=== PATIENT | female | born 1985 | race African-American/Black ===

== ENCOUNTER 2016-08-27 21:10 | Emergency (ER) | payer OTHER ==
[2016-08-27 21:12] VITALS: BP 168/92; PULSE 101; RESP 16; TEMP 98.6; O2SAT 97
[2016-08-27] MEDS ORDERED: DICL75TA PO (21:41)
--- NOTE | 2016-08-27 21:44 | PD ---
HPI Chief Complaint: Injury Time Seen by Provider: 21:41 Travel History International Travel<30 days: No Contact w/Intl Traveler<30days: No Traveled to known affect area: No History of Present Illness HPI 30-year-old black female presents to emergency department with complaints of left knee pain. She states that she was running while playing kickball and had sudden pain and popping sensation in her left knee. Since then she has not been able to bend her knee freely. She denies any direct trauma. No numbness, tingling or weakness. Pain is moderate. Worse with weight bearing and bending of the knee. No alleviating factors. PFSH Past Medical History Medical History: Denies Significant Hx Diminished Hearing: No Tetanus Vaccination: < 5 Years ?: Not : 2 Para: 2 Tubal Ligation: Yes Past Surgical History Narrative Surgical Tubal ligation Gynecologic Surgery: Yes (TUBAL LIGATION) Tonsillectomy: Yes Social History Alcohol Use: No Tobacco Use: No Substance Use: No Allergies-Medications (Allergen,Severity, Reaction): Coded Allergies: Citric Acid (Verified Allergy, Severe, RASH AND SWELLING, 08/27/16) Reported Meds & Prescriptions Reported Meds & Active Scripts Active No Active Prescriptions or Reported Medications Review of Systems Except as stated in HPI: all other systems reviewed are Neg Musculoskeletal: Positive: Arthralgias, Limited ROM, Edema, Pain Physical Exam Narrative GENERAL: This is a well-nourished, well-developed patient, in no apparent distress. SKIN: No rashes, ecchymoses or lesions. Warm and dry. HEAD: Atraumatic. Normocephalic. EYES: PERRL, EOMI, no discharge or injection. No scleral icterus. EARS: Clear NOSE: Nasal turbinates appear normal. THROAT: Mucosa pink and moist. Airway patent. NECK: Trachea midline. supple, moves head freely. LUNGS: Clear to auscultation. CV: Regular in rhythm. ABDOMEN: Soft nontender. EXT: No clubbing cyanosis or edema. Examination of the left lower shoulder reveals no obvious joint effusion. She complains of tenderness over the patella and infrapatellar region. She has full extension but has limited flexion. No pain on the medial lateral compartments of the knee. No instability. No pain in the hip, ankle or foot. She has intact sensation with good distal pulses Data Data Last Documented VS Vital Signs Date Time Temp Pulse Resp B/P Pulse Ox O2 Delivery O2 Flow Rate FiO2 08/27/16 21:12 98.6 101 16 168/92 97 Room Air Orders Ice/Cold Pack (08/27/16 21:40) Splint Or Brace Apply/Monitor (08/27/16 21:40) Crutches (08/27/16 21:40) Ibuprofen (Motrin) (08/27/16 21:45) MDM Medical Decision Making Medical Screen Exam Complete: Yes Emergency Medical Condition: Yes Medical Record Reviewed: Yes Differential Diagnosis MDM: High Differential diagnoses: Fracture, sprain, strain, dislocation, contusion, neurovascular injury Narrative Course This is left knee sprain. Patient's given Kevin wrap, Motrin 800, crutches. Diagnosis Primary Impression: Left knee sprain Qualified Code: S83.92XA - Sprain of left knee, unspecified ligament, initial encounter Patient Instructions: General Instructions Departure Forms: Tests/Procedures, Work Release Special Instructions: No work 3 days. Additional Instructions: Rest. Elevation. Ice packs for the next 3 days. Kevin wrap and crutches. No weight-bearing and then progress to weight-bearing as tolerated. Medications as directed Follow-up with an orthopedist or your doctor in one week. Return to the ER if any problems Med/Other Pt SpecificInfo: Prescription(s) given Scripts Diclofenac Sodium DR 75 Mg Tabdr75 Mg PO BID #20 TAB Prov:Zeynep Lazo DO 08/27/16 Disposition: 01 DISCHARGE HOME Condition: Stable Shashank Hernandez August 27, 2016 21:44
[2016-08-27] MEDS: IBUPROFEN 800 MG TAB PO ONE ×2 (22:12→22:17)
== END 2016-08-27 22:44 | disposition home or self-care (01) ==
LOC: NEPK 21:10
DX: S83.92XA Sprain of unspecified site of left knee, initial encounter (principal); X58.XXXA Exposure to other specified factors, initial encounter; Y93.02 Activity, running
CPT/HCPCS: 99283; E0113

== ENCOUNTER 2016-11-19 00:42 | Emergency (ER) | payer OTHER ==
[~2016-11-19] VITALS: Ht 175.3 cm; Wt 135.0 kg
[~2016-11-19 00:42] MED LIST: DICL75TA PO
[2016-11-19 00:44] VITALS: BP 140/89; PULSE 93; RESP 18; TEMP 98.7; O2SAT 99
[2016-11-19 01:31] LABS: BLOOD, URINE SMALL (NEG); COMMENT (UR) CULT NOT INDICATED; CULTURE IF INDICATED CULT NOT INDICATED; GLUCOSE,URINE NEG (NEG); KETONE, URINE NEG (NEG); MUCUS URINE MANY /lpf (OCC); NITRITE,URINE NEG (NEG); PH, URINE 5.5 (5.0-8.5); SQUAMOUS EPITHELIAL CELL URINE 19 /hpf (0-5); URINE COLOR YELLOW (YELLW/STRAW)
[2016-11-19] MEDS ORDERED: KETOROLAC TROMETHAMINE 60 MG/2 ML (IM) VIAL IM ONE (02:00)
[2016-11-19] MEDS ORDERED: ORPHENADRINE INJ 60 MG/2 ML AMP IM ONE (02:00)
[2016-11-19] MEDS ORDERED: BACL10TA PO (02:03)
[2016-11-19] MEDS ORDERED: IBUP800T23 PO (02:03)
--- NOTE | 2016-11-19 02:07 | PD ---
HPI Chief Complaint: Back/ Neck Pain or Injury Time Seen by Provider: 01:46 Travel History International Travel<30 days: No Contact w/Intl Traveler<30days: No Traveled to known affect area: No History of Present Illness HPI 31-year-old female here with lower back pain which started this morning. The pain is an aching pain that is worse with movement. She does not recall any injury. She has not tried using any [id number] medication for symptom relief. Denies abdominal pain, flank pain, dysuria, hematuria, vaginal bleeding or discharge, radicular symptoms, bowel or bladder incontinence, saddle anesthesia. No other complaints. PFSH Past Medical History Medical History: Denies Significant Hx Diminished Hearing: No Immunizations Current: Yes ?: Not LMP: 10/27/16 : 2 Para: 2 Tubal Ligation: Yes Past Surgical History Gynecologic Surgery: Yes (TUBAL LIGATION) Tonsillectomy: Yes Social History Alcohol Use: No Tobacco Use: No Substance Use: No Allergies-Medications (Allergen,Severity, Reaction): Coded Allergies: citric acid (Unverified Allergy, Severe, RASH AND SWELLING, 11/11/16) Reported Meds & Prescriptions Reported Meds & Active Scripts Active Ibuprofen 800 Mg Tab 800 Mg PO Q6HR PRN 7 Days Baclofen 10 Mg Tab 10 Mg PO Q8HR PRN [address] (Diclofenac Sodium) 75 Mg Tabdr 75 Mg PO BID Review of Systems Except as stated in HPI: all other systems reviewed are Neg Physical Exam Narrative GENERAL: Well-developed well-nourished female in no acute distress SKIN: Warm and dry. There is no rash, no bruising, no soft tissue swelling HEAD: Atraumatic. Normocephalic. EYES: Pupils equal and round. No scleral icterus. No injection or drainage. ENT: No nasal bleeding or discharge. Mucous membranes pink and moist. NECK: Trachea midline. No JVD. CARDIOVASCULAR: Regular rate and rhythm. No murmur appreciated. RESPIRATORY: No accessory muscle use. Clear to auscultation. Breath sounds equal bilaterally. GASTROINTESTINAL: Abdomen soft, non-tender, nondistended. Hepatic and splenic margins not palpable. MUSCULOSKELETAL: No obvious deformities. There is tenderness to palpation to the lumbar paravertebral musculature. There is no CVA tenderness. There is no vertebral midline tenderness. Normal gait. NEUROLOGICAL: Awake and alert. No obvious cranial nerve deficits. Motor grossly within normal limits. Normal speech. Data Data Last Documented VS Vital Signs Date Time Temp Pulse Resp B/P (MAP) Pulse Ox O2 Delivery O2 Flow Rate FiO2 11/19/16 00:44 98.7 93 18 140/89 (106) 99 Orders Orders Ed Urine Pregnancytest Poc (11/19/16 01:01) Urinalysis - C+S If Indicated (11/19/16 01:01) Ketorolac Inj (Toradol Inj) (11/19/16 02:00) Orphenadrine Inj (Norflex Inj) (11/19/16 02:00) Labs Laboratory Tests Test 11/19/16 01:12 Urine Color YELLOW Urine Turbidity HAZY Urine pH 5.5 Urine Specific [place] 1.036 Urine Protein TRACE mg/dL Urine Glucose (UA) NEG mg/dL Urine Ketones NEG mg/dL Urine Occult Blood SMALL Urine Nitrite NEG Urine Bilirubin NEG Urine Urobilinogen LESS THAN 2.0 MG/DL Urine Leukocyte Esterase MOD Urine RBC 3 /hpf Urine WBC 6 /hpf Urine Squamous Epithelial Cells 19 /hpf Urine Mucus MANY /lpf Microscopic Urinalysis Comment CULT NOT INDICATED MDM Medical Decision Making Medical Screen Exam Complete: Yes Emergency Medical Condition: Yes Medical Record Reviewed: Yes Differential Diagnosis Lumbar strain, spasm, renal stone, referred intra-abdominal pain, lumbar fracture Narrative Course Physical examination is consistent with lumbar strain. There is no evidence of renal stone on examination or history. There is no evidence of UTI on history or examination. The abdomen is soft and nontender. The patient will be discharged with a short course of NSAIDs and muscle relaxants. Diagnosis Primary Impression: Lumbar strain Qualified Codes: S39.012A - Strain of muscle, fascia and tendon of lower back , initial encounter Additional Instructions: Medication as needed. Avoid strenuous activity. Follow-up with primary care physician in one week. Return for any emergent medical conditions. Med/Other Pt SpecificInfo: Prescription(s) given Scripts Ibuprofen (Ibuprofen) 800 Mg Tab 800 MG PO Q6HR Y for PAIN for 7 Days, TAB 0 Refills Prov: Sarah Nye DO 11/19/16 Baclofen (Baclofen) 10 Mg Tab 10 MG PO Q8HR Y for MUSCLE SPASM for 7 Days, TAB 0 Refills Prov: Sarah Nye DO 11/19/16 Disposition: 01 DISCHARGE HOME Condition: Stable Latrell Monroe Nov 19, 2016 02:07
== END 2016-11-19 02:43 | disposition home or self-care (01) ==
LOC: NEPK 00:42
DX: S39.012A Strain of muscle, fascia and tendon of lower back, initial encounter (principal); X58.XXXA Exposure to other specified factors, initial encounter
CPT/HCPCS: 81001; 84703; 96372; 99284; J1885; J2360

== ENCOUNTER 2017-04-23 23:55 | Emergency (ER) | payer SELFPAY ==
[~2017-04-23] VITALS: Ht 162.6 cm; Wt 98.0 kg
[~2017-04-23 23:55] MED LIST changes: +BACL10TA PO; +IBUP1TAB7 PO
[2017-04-23 23:59] VITALS: BP 119/62; PULSE 97; RESP 12; O2SAT 100
[2017-04-24] MEDS ORDERED: IBUPROFEN 600 MG TAB PO ONE (01:30)
[2017-04-24 01:47] LABS: AUTOMATED NEUTROPHIL # 5.3 TH/MM3 (1.8-7.7); BASOPHIL # 0.1 TH/MM3 (0-0.2); BASOPHIL % 0.7 % (0.0-2.0); EOSINOPHIL # 0.1 TH/MM3 (0-0.4); EOSINOPHIL % 1.2 % (0.0-4.0); HEMATOCRIT 38.7 % (35.0-46.0); HEMOGLOBIN 13.2 GM/DL (11.6-15.3); LYMPH % 34.3 % (9.0-44.0); LYMPHOCYTE # 3.2 TH/MM3 (1.0-4.8); MEAN CELL VOLUME 87.8 FL (80.0-100.0); MEAN CORPUSCULAR HEMOGLOBIN 29.9 PG (27.0-34.0); MONO % 6.5 % (0.0-8.0); MONOCYTE # 0.6 TH/MM3 (0-0.9); NEUT % 57.3 % (16.0-70.0); PLATELET COUNT 351 TH/MM3 (150-450); RED BLOOD COUNT 4.41 MIL/MM3 (4.00-5.30); WHITE BLOOD COUNT 9.2 TH/MM3 (4.0-11.0)
--- NOTE | 2017-04-24 03:51 | PD ---
HPI . Numbness/tingling Chief Complaint: Numbness/Tingling Time Seen by Provider: 00:41 Travel History International Travel<30 days: No Contact w/Intl Traveler<30days: No Traveled to known affect area: No History of Present Illness HPI 31-year-old female status post operation on left elbow recently, presents with having pain tenderness swelling of her left hand. Patient presents with her hand in a dependent position. Patient denies any fever chills sweats or swelling or pain proximal to the elbow. No recent trauma PFSH Past Medical History Narrative Medical Past medical history reviewed. Past surgical history reviewed Diminished Hearing: No Immunizations Current: Yes Tetanus Vaccination: Unknown Influenza Vaccination: No ?: Unknown : 2 Para: 2 Tubal Ligation: Yes Past Surgical History Gynecologic Surgery: Yes (TUBAL LIGATION) Tonsillectomy: Yes Social History Alcohol Use: No Tobacco Use: No Substance Use: No Allergies-Medications (Allergen,Severity, Reaction): Coded Allergies: citric acid (Unverified Allergy, Severe, RASH AND SWELLING, 04/24/17) Reported Meds & Prescriptions Reported Meds & Active Scripts Active Ibuprofen 800 Mg Tab 800 Mg PO Q6HR PRN 7 Days Baclofen 10 Mg Tab 10 Mg PO Q8HR PRN [address] (Diclofenac Sodium) 75 Mg Tabdr 75 Mg PO BID Narrative Medication Allergies and medications reviewed Review of Systems Except as stated in HPI: all other systems reviewed are Neg General / Constitutional: No: Fever Eyes: No: Visual changes HENT: No: Headaches Cardiovascular: No: Chest Pain or Discomfort Respiratory: No: Shortness of Breath Gastrointestinal: No: Abdominal Pain Genitourinary: No: Dysuria Musculoskeletal: Positive: Edema, Pain Skin: No Rash Neurologic: Positive: Paresthesia, No: Weakness Psychiatric: No: Depression Endocrine: No: Polydipsia Hematologic/Lymphatic: No: Easy Bruising Physical Exam Narrative GENERAL: Awake and alert oriented 3 no acute distress SKIN: Warm and dry. HEAD: Atraumatic. Normocephalic. EYES: Pupils equal and round. No scleral icterus. No injection or drainage. ENT: No nasal bleeding or discharge. Mucous membranes pink and moist. NECK: Trachea midline. No JVD. CARDIOVASCULAR: Regular rate and rhythm. RESPIRATORY: No accessory muscle use. Clear to auscultation. Breath sounds equal bilaterally. GASTROINTESTINAL: Abdomen soft, non-tender, nondistended. Hepatic and splenic margins not palpable. MUSCULOSKELETAL: Left upper extremity with left lateral elbow well-healing surgical scar, gaurav edema of the patient's hand and wrist distally. Patient has paresthesias and numbness of same NEUROLOGICAL: Awake and alert. No obvious cranial nerve deficits. Motor grossly within normal limits. Five out of 5 muscle strength in the arms and legs. Normal speech. PSYCHIATRIC: Appropriate mood and affect; insight and judgment normal. Data Data Last Documented VS Vital Signs Date Time Temp Pulse Resp B/P (MAP) Pulse Ox O2 Delivery O2 Flow Rate FiO2 04/23/17 23:59 97 12 119/62 (81) 100 Room Air Orders Orders Complete Blood Count With Diff (04/24/17 01:00) Ibuprofen (Motrin) (04/24/17 01:30) Labs Laboratory Tests Test 04/24/17 01:25 White Blood Count 9.2 TH/MM3 Red Blood Count 4.41 MIL/MM3 Hemoglobin 13.2 GM/DL Hematocrit 38.7 % Mean Corpuscular Volume 87.8 FL Mean Corpuscular Hemoglobin 29.9 PG Mean Corpuscular Hemoglobin Concent 34.0 % Red Cell Distribution Width 14.0 % Platelet Count 351 TH/MM3 Mean Platelet Volume 8.0 FL Neutrophils (%) (Auto) 57.3 % Lymphocytes (%) (Auto) 34.3 % Monocytes (%) (Auto) 6.5 % Eosinophils (%) (Auto) 1.2 % Basophils (%) (Auto) 0.7 % Neutrophils # (Auto) 5.3 TH/MM3 Lymphocytes # (Auto) 3.2 TH/MM3 Monocytes # (Auto) 0.6 TH/MM3 Eosinophils # (Auto) 0.1 TH/MM3 Basophils # (Auto) 0.1 TH/MM3 CBC Comment DIFF FINAL Differential Comment MDM Medical Decision Making Medical Screen Exam Complete: Yes Emergency Medical Condition: Yes Medical Record Reviewed: Yes Differential Diagnosis Compartment syndrome, dependent edema, cellulitis Narrative Course Patient's extremity elevated for 30 minutes, with significant improvement in edema as well as symptomatology of paresthesias and numbness. Patient's pulses and capillary refill remained positive throughout. Patient's laboratory examination reviewed, normal white blood cell count. Discharge Diagnosis Primary Impression: Edema Qualified Codes: R60.0 - Localized edema Patient Instructions: Edema (ED), General Instructions Additional Instructions: Elevate left upper extremity above heart as shown. Follow-up with your surgeon. Return for worsening. Motrin for pain Disposition: 01 DISCHARGE HOME Condition: Stable Frank Hoskins MD Apr 24, 2017 03:51
== END 2017-04-24 03:58 | disposition home or self-care (01) ==
LOC: NEPE 23:55
DX: R60.0 Localized edema (principal)
CPT/HCPCS: 85025; 99283

== ENCOUNTER 2017-08-06 23:43 | Emergency (ER) | payer OTHER ==
[~2017-08-06] VITALS: Ht 177.8 cm; Wt 132.0 kg
[2017-08-06 23:58] VITALS: BP 132/71; PULSE 82; RESP 20; TEMP 98.4; O2SAT 100
[2017-08-07 03:14] LABS: AUTOMATED NEUTROPHIL # 4.4 TH/MM3 (1.8-7.7); BASOPHIL % 0.4 % (0.0-2.0); EOSINOPHIL # 0.1 TH/MM3 (0-0.4); EOSINOPHIL % 1.5 % (0.0-4.0); LYMPH % 35.1 % (9.0-44.0); LYMPHOCYTE # 2.8 TH/MM3 (1.0-4.8); MEAN CELL VOLUME 87.1 FL (80.0-100.0); MEAN CORPUSCULAR HEMOGLOBIN 28.9 PG (27.0-34.0); MEAN CORPUSCULAR HGB CONC 33.2 % (32.0-36.0); MEAN PLATELET VOLUME 8.4 FL (7.0-11.0); MONO % 8.3 % (0.0-8.0); MONOCYTE # 0.7 TH/MM3 (0-0.9); NEUT % 54.7 % (16.0-70.0); PLATELET COUNT 286 TH/MM3 (150-450); RED BLOOD COUNT 4.48 MIL/MM3 (4.00-5.30); RED CELL DISTRIBUTION WIDTH 14.6 % (11.6-17.2)
--- NOTE | 2017-08-07 03:21 | PD ---
HPI Chief Complaint: Edema Time Seen by Provider: 02:30 Travel History International Travel<30 days: No Contact w/Intl Traveler<30days: No Traveled to known affect area: No History of Present Illness HPI 31-year-old female presents to the emergency department for 3 months of lower extremity swelling which is worsened over the past 2 days. Patient was just seen by her primary care provider 2 weeks ago is evaluating her for amenorrhea. Patient states that she has not had a period in 3 months status post tubal ligation and test is negative. Patient states she did tell her primary care provider about the lower extremity swelling and foot pedal pain but that the doctor was focused on her menstrual issues and forgot to address her foot swelling. Patient denies other concerns or complaints. Patient's had no fever no orthopnea no PND no dyspnea on exertion no chest pain no shortness of breath no wheezing no abdominal pain no recent long distance travel protracted bedrest or surgical procedure. Patient denies any calf pain or tenderness. Patient states pain is related to her feet which throb when she puts on her tennis shoes. Patient denies other concerns or complaints. Patient is a normal urine output. Patient denies history of kidney failure and denies history of diabetes. PFSH Past Medical History Narrative Medical Morbid obesity dysfunctional uterine bleeding tubal ligation tonsillectomy no tobacco use; nursing notes reviewed Medical History: Denies Significant Hx Diminished Hearing: No Immunizations Current: Yes ?: Not : 2 Para: 2 Tubal Ligation: Yes Past Surgical History Gynecologic Surgery: Yes (TUBAL LIGATION) Tonsillectomy: Yes Social History Alcohol Use: No Tobacco Use: No Substance Use: No Allergies-Medications (Allergen,Severity, Reaction): Coded Allergies: citric acid (Unverified Allergy, Severe, RASH AND SWELLING, 08/06/17) Reported Meds & Prescriptions Reported Meds & Active Scripts Active Ibuprofen 800 Mg Tab 800 Mg PO Q6HR PRN 7 Days Baclofen 10 Mg Tab 10 Mg PO Q8HR PRN [address] (Diclofenac Sodium) 75 Mg Tabdr 75 Mg PO BID Review of Systems Except as stated in HPI: all other systems reviewed are Neg General / Constitutional: No: Fever, Chills HENT: No: Congestion Cardiovascular: Positive: Edema, No: Chest Pain or Discomfort, Palpitations, Diaphoresis, Syncope, Dyspnea on exertion Respiratory: No: Cough, Shortness of Breath, Wheezing, Orthopnea, Pleuritic Pain Gastrointestinal: No: Nausea, Vomiting, Abdominal Pain Genitourinary: No: Dysuria Musculoskeletal: Positive: Edema, No: Myalgias, Arthralgias Skin: No Rash Neurologic: No: Weakness Psychiatric: No: Anxiety Hematologic/Lymphatic: No: Lymph Node Enlargement Physical Exam Narrative GENERAL: Well-developed well-nourished obese female no acute distress or respiratory distress; triage vital signs in normal range SKIN: Warm and dry. HEAD: Normocephalic. EYES: No scleral icterus. No injection or drainage. NECK: Supple, trachea midline. No JVD or lymphadenopathy. CARDIOVASCULAR: Regular rate and rhythm without murmurs, gallops, or rubs. RESPIRATORY: Breath sounds equal bilaterally. No accessory muscle use. GASTROINTESTINAL: Abdomen soft, non-tender, nondistended. MUSCULOSKELETAL: No cyanosis, bilateral lower extremity and pedal edema; bilateral dorsalis pedis pulses 2+ to palpation and equal. Capillary refill is brisk and less than 2 seconds per digit no redness no increased warmth, pink warm extremities no pallor or coolness. BACK: Nontender without obvious deformity. No CVA tenderness. Data Data Last Documented VS Vital Signs Date Time Temp Pulse Resp B/P (MAP) Pulse Ox O2 Delivery O2 Flow Rate FiO2 08/06/17 23:58 98.4 82 20 132/71 (91) 100 Orders Orders Complete Blood Count With Diff (08/07/17 02:30) Basic Metabolic Panel (Bmp) (08/07/17 02:30) Magnesium (Mg) (08/07/17 02:30) Ed Urine Pregnancytest Poc (08/07/17 02:30) B-Type Natriuretic Peptide (08/07/17 02:30) Chest, Single Ap (08/07/17 ) Labs Laboratory Tests Test 08/07/17 02:57 White Blood Count 8.0 TH/MM3 Red Blood Count 4.48 MIL/MM3 Hemoglobin 13.0 GM/DL Hematocrit 39.0 % Mean Corpuscular Volume 87.1 FL Mean Corpuscular Hemoglobin 28.9 PG Mean Corpuscular Hemoglobin Concent 33.2 % Red Cell Distribution Width 14.6 % Platelet Count 286 TH/MM3 Mean Platelet Volume 8.4 FL Neutrophils (%) (Auto) 54.7 % Lymphocytes (%) (Auto) 35.1 % Monocytes (%) (Auto) 8.3 % Eosinophils (%) (Auto) 1.5 % Basophils (%) (Auto) 0.4 % Neutrophils # (Auto) 4.4 TH/MM3 Lymphocytes # (Auto) 2.8 TH/MM3 Monocytes # (Auto) 0.7 TH/MM3 Eosinophils # (Auto) 0.1 TH/MM3 Basophils # (Auto) 0.0 TH/MM3 CBC Comment DIFF FINAL Differential Comment Blood Urea Nitrogen 13 MG/DL Creatinine 0.70 MG/DL Random Glucose 114 MG/DL Calcium Level 8.8 MG/DL Magnesium Level 1.7 MG/DL Sodium Level 140 MEQ/L Potassium Level 3.8 MEQ/L Chloride Level 108 MEQ/L Carbon Dioxide Level 25.7 MEQ/L Anion Gap 6 MEQ/L Estimat Glomerular Filtration Rate 120 ML/MIN B-Type Natriuretic Peptide LESS THAN 2 PG/ML MDM Medical Decision Making Medical Screen Exam Complete: Yes Emergency Medical Condition: Yes Medical Record Reviewed: Yes Interpretation(s) bnp: 20, not elevated poc hcg: negative Last Impressions Chest X-Ray 08/07/17 0000 Signed Impressions: Service Date/Time: Monday, August 07, 2017 02:36 - CONCLUSION: No acute disease. Preston Slater MD CBC & BMP Diagram 08/07/17 02:57 Calcium Level 8.8, Magnesium Level 1.7 Vital Signs Date Time Temp Pulse Resp B/P (MAP) Pulse Ox O2 Delivery O2 Flow Rate FiO2 08/06/17 23:58 98.4 82 20 132/71 (91) 100 Differential Diagnosis Dependent edema, hypo-proteinemia, CHF, DVT Narrative Course 31-year-old female with lower extremity swelling; specimens collected and sent for result Patient informed of lab results given one-time dose of Lasix and prescription for 3 tablets of Lasix along with potassium chloride 10 mEq to use as needed for lower extremity swelling encouraged to elevate lower extremities and follow- up with primary care provider Diagnosis Primary Impression: Pedal edema Referrals: Primary Care Physician 3 days Patient Instructions: General Instructions Additional Instructions: Elevate lower extremities Follow-up with primary care provider call office in a.m. to schedule follow-up appointment May take medication to remove excess fluid once daily for no more than 3 days; take medication for potassium replacement as well Return to the emergency department for any concerns or change in condition No work 1 day Avoid nonsteroidal anti-inflammatory medication such as ibuprofen/Motrin/Advil/ Naprosyn/naproxen/Aleve Med/Other Pt SpecificInfo: Prescription(s) given Scripts Furosemide (Lasix) 20 Mg Tab 20 MG PO DAILY, #3 TAB 0 Refills Prov: Payal Adamson MD 08/07/17 Potassium Chloride ER (Potassium Chloride ER) 10 Meq Cap 10 MEQ PO DAILY for Electrolyte Replacement, #3 CAP 0 Refills Prov: Payal Adamson MD 08/07/17 Disposition: 01 DISCHARGE HOME Condition: Stable Payal Adamson MD August 07, 2017 03:21
[2017-08-07 03:33] LABS: BICARBONATE 25.7 MEQ/L (21.0-32.0); CALCIUM 8.8 MG/DL (8.5-10.1); CREATININE 0.7 MG/DL (0.50-1.00); MAGNESIUM 1.7 MG/DL (1.5-2.5)
--- NOTE | 2017-08-07 03:37 | RADRPT ---
EXAM DATE/TIME: 08/07/2017 02:36 [facility] COMPARISON: No previous studies available for comparison. INDICATIONS : Short of breath. MEDICAL HISTORY : None. SURGICAL HISTORY : None. ENCOUNTER: Initial ACUITY: 1 day PAIN SCORE: 0/10 LOCATION: Bilateral chest FINDINGS: A single view of the chest demonstrates the lungs to be symmetrically aerated without evidence of mas s, infiltrate or effusion. The cardiomediastinal contours are unremarkable. Osseous structures are intact. CONCLUSION: No acute disease. Preston Slater MD on August 07, 2017 at 3:36 Board Certified Radiologist. This report was verified electronically.
[2017-08-07] MEDS ORDERED: FUROSEMIDE 20 MG/2 ML VIAL IV PUSH ONE (04:30)
[2017-08-07] MEDS ORDERED: POTA10CA PO (04:31)
[2017-08-07] MEDS ORDERED: FURO1TAB62 PO (04:31)
== END 2017-08-07 05:11 | disposition home or self-care (01) ==
LOC: NEPC 23:43
DX: R60.0 Localized edema (principal); E66.01 Morbid (severe) obesity due to excess calories
CPT/HCPCS: 71045; 80048; 83735; 83880; 84703; 85025; 96374; 99284; J1940

== ENCOUNTER 2017-08-12 07:33 | Emergency (ER) | payer OTHER ==
[~2017-08-12] VITALS: Ht 177.8 cm; Wt 131.0 kg
[~2017-08-12 07:33] MED LIST changes: +FURO1TAB62 PO; +POTA10CA PO
[2017-08-12 07:36] VITALS: BP 155/70; PULSE 90; RESP 20; TEMP 98.8; O2SAT 100
--- NOTE | 2017-08-12 08:27 | PD ---
HPI Chief Complaint: Pain: Acute or Chronic Time Seen by Provider: 07:55 Travel History International Travel<30 days: No Contact w/Intl Traveler<30days: No Traveled to known affect area: No History of Present Illness HPI This is a 31-year-old female who presents to the emergency department with swelling and pain in her left leg and foot, constant, severe, going on for 3 months and not improving despite taking Lasix. She was seen in the emergency department about a week ago by Dr. Adamson. She had normal blood work including a normal BNP and normal kidney function. At that time she was discharged on Lasix. She says the Lasix helped her right leg but her left leg continues to be swollen. She works at [employer] and is on her feet all day. She denies any shortness of breath. PFSH Past Medical History Diminished Hearing: No Immunizations Current: Yes Tetanus Vaccination: < 5 Years ?: Not : 2 Para: 2 Tubal Ligation: Yes Past Surgical History Gynecologic Surgery: Yes (TUBAL LIGATION) Tonsillectomy: Yes Social History Alcohol Use: No Tobacco Use: No Substance Use: No Allergies-Medications (Allergen,Severity, Reaction): Coded Allergies: citric acid (Unverified Allergy, Severe, RASH AND SWELLING, 08/12/17) Reported Meds & Prescriptions Reported Meds & Active Scripts Active No Active Prescriptions or Reported Medications Review of Systems Except as stated in HPI: all other systems reviewed are Neg Physical Exam Narrative GENERAL:Well appearing, no acute distress SKIN: Focused skin assessment warm and dry. HEAD: Atraumatic. Normocephalic. EYES: Pupils equal and round. No injection or drainage. ENT: Moist mucous membranes NECK: Trachea midline. CARDIOVASCULAR: Regular rate and rhythm. No murmur appreciated. 2+ edema in the left lower extremity with swelling of the calf and foot RESPIRATORY: Clear to auscultation. Breath sounds equal bilaterally. GASTROINTESTINAL: Abdomen soft, non-tender, nondistended. MUSCULOSKELETAL: No obvious deformities. NEUROLOGICAL: Awake and alert. No obvious cranial nerve deficits. Moving all extremities. PSYCHIATRIC: Appropriate mood and affect; insight and judgment normal. Data Data Last Documented VS Vital Signs Date Time Temp Pulse Resp B/P (MAP) Pulse Ox O2 Delivery O2 Flow Rate FiO2 08/12/17 07:36 98.8 90 20 155/70 (98) 100 Orders Orders Us Leg Venous Doppler (5/16/18 ) MDM Medical Decision Making Medical Screen Exam Complete: Yes Emergency Medical Condition: Yes Medical Record Reviewed: Yes (Labs from 08/07 demonstrate normal kidney function and a normal BNP) Interpretation(s) Ultrasound is negative for DVT Differential Diagnosis DVT, renal insufficiency, congestive heart failure, dependent edema Narrative Course This is a 31-year-old female who presents to the emergency department with pain in her legs particularly in her left leg with swelling. I suspect this is dependent edema. Labs from 1 week ago were reassuring. Ultrasound was performed today which was unremarkable. I think patient can be treated with compression stockings and can be discharged home. Diagnosis Primary Impression: Dependent edema Patient Instructions: General Instructions Additional Instructions: If you develop severe chest pain, shortness of breath, sweating, lightheadedness , dizziness or difficulty breathing return to the emergency department immediately. Followup with your primary care physician in 2-3 days if your symptoms are not resolved. Med/Other Pt SpecificInfo: No Change to Meds Scripts No Active Prescriptions or Reported Meds Disposition: 01 DISCHARGE HOME Condition: Stable Ijeoma Garvin MD August 12, 2017 08:27
--- NOTE | 2017-08-12 08:54 | RADRPT ---
EXAM DATE/TIME: 08/12/2017 08:11 [facility] COMPARISON: No previous studies available for comparison. INDICATIONS : Left leg swelling. MEDICAL HISTORY : SURGICAL HISTORY : Tonsillectomy. Tubal ligation. ENCOUNTER: Initial ACUITY: 3 months PAIN SCORE: 2/10 LOCATION: Left leg. TECHNIQUE: Venous ultrasound of the leg was performed from the inguinal ligament to the proximal calf. Real-eidth e, color Doppler and spectral tracing, compression and augmentation techniques were used. FINDINGS: There is normal compressibility of the deep venous system from the inguinal region to the proximal ca lf. No echogenic clot is seen in the lumen of the common femoral, femoral, popliteal, and posterior tibial veins. There is a normal response of the venous system to proximal and distal augmentation an d respiration. CONCLUSION: Negative for deep venous thrombosis. Conrad Malik MD FACR on August 12, 2017 at 8:51 Board Certified Radiologist. This report was verified electronically.
== END 2017-08-12 09:11 | disposition home or self-care (01) ==
LOC: NEPC 07:33
DX: R60.9 Edema, unspecified (principal)
CPT/HCPCS: 93971